=== PATIENT | male | born 1955 ===

== ENCOUNTER 2024-08-13 10:13 | Outpatient (CLI) | payer MEDICARE, OTHER, SELFPAY ==
--- OUTSIDE RECORDS SUMMARY | 2024-08-15 17:16 | XMS_ITS | Data Portability ---
Author Organization [facility], Main Office Address [address] [facility] [address] [place] [phone] Assessment No assessment recorded. Plan of Treatment Reminders Order Date Submit Date Provider Last Modified By Organization Details Last Modified Time Details Appointments None recorded. Lab None recorded. Referral None recorded. Procedures cryosurgery (PROC) 2019 020 [email or web address] Not available 0 22:43:05 cryosurgery (PROC) 2019 020 [email or web address] Not available 0 22:43:05 Surgeries None recorded. Imaging None recorded. Medication Orders None recorded. Patient TargetsNo targets recorded. Patient Instructions Encounter Date Encounter Id Patient Instructions Last Modified By Organization Details Last Modified Time 07/30/2019 [id number] RIGHT: ABOVE BROW, TEMPLX2, LEFT:X9OPHYIT dict Cryotherapy to AKs. SPF 30. Monthly self-exam. Consider 5-FU to the forehead and druze areas after healing from the cryo. Reassurance benign regarding skin tags. Discussed cosmetic removal. Follow up in 6 months. [id number] Not available 07/31/2019 11:14:25 Reason for Referral None Reported. Problems Name Problem SNOMED Code Status Onset Date Resolution Date Notes Provider Name and Address Organization Details Recorded Time Actinic keratosis Active 019 Rosendo Gomez MD [address] [facility] [address], [place], [phone], [facility] 9 10:34:02 History of malignant neoplasm of skin Active 019 Rosendo Gomez MD [address] [facility] [address], [place], [phone], [facility] 9 10:34:03 Screening for malignant neoplasm of skin Active 019 Rosendo Gomez MD [address], [place], [phone], [facility] 9 10:34:04 Neoplasm of uncertain behavior of skin 12066561 Active 019 Rosendo Gomez MD [address], [place], [address], [facility] 9 10:34:53 Multiple actinic keratoses 826127087 Active 020 Rosendo Gomez MD [address], [place], [address], [facility] 0 11:01:02 Multiple axillary skin tags 902272698 Active 020 Rosendo Gomez MD [address], [place], [phone], [facility] 0 11:01:03 Problem Notes None recorded. Medical Equipment None Reported. Medications Name Sig Start Date Stop Date Status Note LastModified by Organization Details LastModified Time fluorouraci l 5 % topical cream APPLY TO THE NOTED AREAS OF THE SCALP EVERY EVENING, FOR 4 WEEKS. active Not Available Not Available No t Available allopurinol 100 mg tablet 12/11 completed Not Available Not Available Not Available spironolact one 25 mg tablet active Not Available Not Available Not Available losartan 100 mg-hydrochl orothiazide 25 mg tablet 07/30 completed Not Available Not Available Not Available amlodipine 10 mg tablet active Not Available Not Available Not Available hydralazine 100 mg tablet active Not Available Not Available Not Available hydrochloro thiazide 25 mg tablet active Not Available Not Available No t Available losartan 100 mg tablet active Not Available Not Available Not Available Bystolic 10 mg tablet active Not Available Not Available No t Available Picato 0.015 % topical gel APPLY TO THE AFFECTED AREA(S) ON THE FACE BY TOPICAL ROUTE ONCE DAILY FOR 3 CONSECUTI VE DAYS 07/30 completed Not Available Not Available Not Available Vitals None Recorded Social History None recorded. Functional Status None recorded. Mental Status None recorded. Family History Nothing Reported. Medical History No medical history recorded. Past Encounters Encounter ID Performer Location Encounter Start Date Encounter Closed Date Diagnosis/Indication Diagnosis SNOMED-CT Code Diagnosis ICD10 Code Diagnosis Note [id number] Rosendo Gomez MD Main Office [address] [facility] [address] [place] [phone] 07/30/2019 10:45:55 07/30/2019 11:04:52 Multiple actinic keratoses 796813167 L57.0 Multiple a xillary skin tags 310758938 D23.5 Chronic ef fect of ultraviolet radiation on normal skin 308599313 L57.8 Health Concerns Section Related Observation LastModified by Organization Detai ls LastModified Time None Recorded Concern Status LastModified by Organization Details LastModified Time None Recorded Advance Directives Directive None Recorded Payers Encounter Date Sequence Insurance Name Policy Number Policy Small Covered Member ID Small Member ID Guarantor Name 07/30/2019 1 [facility] [id number] Felipe Mera [id number] Felipe Mera Notes Date Note Type Note Provider Name and Address Organization Details Recorded Time 07/30/2019 text/html Here to check areas on the face, scalp status post 5-FU. Treated the scalp for 4 weeks but did not complete the full 4 weeks for the face because it was just too irritating. Got the lower face but not the druze and forehead. Also checked growths on the underarms, increasing and starting to bother me but generally are okay. Rosendo Gomez MD [address] [facility] [address], [place], [phone], [facility] 08/21/2019 22:43:27
--- OUTSIDE RECORDS SUMMARY | 2024-08-15 17:16 | XMS_ITS | Data Portability ---
Author Organization [employer] [facility] [employer], Medical Address [address] [place] [address] Care Team Providers Care Redevelopment Manager Name Role Phone JAYCEE GRIFFIN Cloth Seconds Sorter TISH BARNETT Internal Medicine SEAN VEE Primary Care Provider Unavailabl e Assessment Encounter Date Assessment Date Assessment LastModified by Organization Details LastModified Time 12/09/2022 12/09/2022 Felipe is a 67 y/o M whom presents for med refill. He has no questions about ongoing medication use. 1. Hypertension refills sent for furosemide and will recheck lipid panel cbc cmp 2. Metabolic syndrome refills sent for metformin and recheck A1C, insulin and FBS [email or web address] Not available 12/09/2022 15:26:36 Plan of Treatment Reminders Order Date Submit Date Provider Last Modified By Organization Details Last Modified Time Details Appointments None recorded. Lab HbA1c (hemoglobin A1c), blood 2022 023 [employer] [facility], [address] [place], [address], 3 14:25:36 insulin, serum 2022 023 [employer] [facility], [address] [place], [address], 3 14:25:39 CMP, serum or plasma 2022 023 [employer] [facility], [address] [place], [address], 3 14:25:35 CBC w/ auto diff 2022 023 [employer] [facility], [address] [place], [address], 3 14:25:38 lipid panel, serum 2022 023 [employer] [facility], [address], Lower Level: [address], [place], [address], 14:25:35 T4, free, serum 2022 023 [facility], [address] [place], [address], 14:25:37 TSH, serum or plasma 2022 023 [employer] [facility], [address] [place], [address], 3 14:25:37 T3, free, serum or plasma 2022 023 [employer] [facility], [address] [place], [address], 3 14:25:38 vitamin D, 25-hydroxy, total, serum 2022 023 [facility], [address] [place], [address], 3 14:25:36 PSA, serum or plasma 2022 023 [facility] [facility], [address] [place], [address], 3 14:25:39 vitamin D, 25-hydroxy, total, serum 2022 023 [employer] [facility], [address] [place], [address], 3 23:00:26 lipid panel, serum 2022 023 [employer] [facility], [address] [place], [address], 3 23:00:24 coenzyme Q10, total, serum or plasma 2022 023 [employer], [address] [place], [address], 3 23:00:28 testosteron e, free + total, serum 2022 023 [place] [facility], [address] [place], [address], 3 23:00:24 estrogen, total, serum 2022 023 [employer] [facility], [address] [place], [address], 3 23:00:27 CMP, serum or plasma 2022 023 [employer] [facility], [address] [place], [address], 3 23:00:25 CBC w/ auto diff 2022 023 [facility], [address] [place], [address], 3 23:00:27 HbA1c (hemoglobin A1c), blood 2022 023 [facility], [address] [place], [address], 3 23:00:26 insulin, serum 2022 023 [facility], [address] [place] [address], [address], 3 23:00:27 uric acid, serum or plasma 2022 023 [facility], [address] [place], [address], 3 23:00:26 uric acid, serum or plasma 2022 024 [facility], [address] [place], [address], 4 03:11:52 HbA1c (hemoglobin A1c), blood 2022 024 [facility], [address] [place], [address], 4 03:11:54 unlisted lab - cardio iq(R) insulin resistance panel with score 2022 024 [facility], [address] [place], [address], 4 03:11:56 lipid panel, serum 2022 024 [email or web address], [address] [place], [address], 4 17:44:55 CMP, serum or plasma 2022 024 [email or web address] [facility], [address] [place], [address], 4 17:44:32 Referral None recorded. Procedures None recorded. Surgeries None recorded. Imaging CT, coronary calcium score - Note to Patient: They do accept walk ins, but to minimize wait time we recommend calling ahead to schedule.Th e test costs $99 and is payable at the time of the visits.No preparation is necessary. No IV is needed.The test will take a total of 5-10 minutes. [email or web address] [facility], [address], [place], [address], 11:29:10 Medication Orders anastrozole 1 mg tablet 2022 023 [email or web address] 3 ND [facility], [address], [place], [id number], 3 10:07:08 furosemide 40 mg tablet [address] [place] [address] [facility], [address], [place], [id number], 3 09:48:47 metformin 500 mg tablet 2022 023 [facility]778, [address], [place], [id number], 3 15:19:04 naltrexone 50 mg tablet 2022 023 [facility]91, [address], [place], [id number], 3 10:30:19 spironolact one 25 mg tablet 2022 023 [facility], [address], [place], [id number], 3 10:19:11 Patient TargetsNo targets recorded. Patient Instructions Encounter Date Encounter Id Patient Instructions Last Modified By Organization Details Last Modified Time 04/01/2022 [id number] 1. goal 8-10 lbs wt loss next 30 days 2. no alcohol 3. 30 min movement daily 4. diet high protein low carb -- 5. lots of water intake 6. cardiac calcium scan today if possible 7. see me on - as planned in person 8. reach out if any issues 9. balance recesser goal is wt [phone] - we have monthly appt thru the end of the year 10. we may need to check cpap machine to make sure working but i am sure it is due to wt gain elena Not available 04/01/2022 10:58:01 02/03/2023 [id number] 1. fasting labs in 3 months 2. see me after labs 3. reach out if any issues in the [facility] - work on diet and exercise elena Not available 02/03/2023 10:09:47 05/10/2023 [id number] 1. work on reducing red meat and pork and alcohol *rx for naltrexone to help alcohol cravings 2. wt loss goal - 10 + lbs in the next 3 months 3. increase wt training and cardio both 4. refill spironolactone sent in 5. cont resveratrol 6. fasting labs in 3 months -see me after labs 7. consider flu vaccine recheck carotid artery scan -- [email or web address] Not available 05/10/2023 10:30:06 Reason for Referral None Reported. Results Created Date Observation Date Name Description Value Unit Range Abnormal Flag Note LastModifiedBy Organization Detail LastModifiedTime 01/21/20 23 01/30/2023 ADVAN DOROTHY LIPID PNL W/INF LAMMA TION, CARDI O IQ(R) cholesterol, total 149 mg/dL <200 Not Available [facility] [address] [place], [address], 01/30/2023 14:25:34 01/21/20 23 01/30/2023 ADVAN DOROTHY LIPID PNL W/INF LAMMA TION, CARDI O IQ(R) HDL cholesterol 40 mg/dL >39 Not Available [facility] [address], [address], 01/30/2023 14:25:34 01/21/20 23 01/30/2023 ADVAN DOROTHY LIPID PNL W/INF LAMMA TION, CARDI O IQ(R) triglyceride s 194 mg/dL <150 high Not Available [facility] [address], [address], 01/30/2023 14:25:34 01/21/20 23 01/30/2023 ADVAN DOROTHY LIPID PNL W/INF LAMMA TION, CARDI O IQ(R) LDL-choleste rol 80 mg/dL _(zenon c) <100 Jeffery able range <100 mg/dL for prima ry preve ntion ; <70 mg/dL for patie nts with CHD or diabe tic patie nts with >= 2 CHD risk facto rs. LDL-C is now calcu lated using the [facility] calcu latio n, which is a valid ated novel metho d provi ding ken r accur acy than the Fried seth equat ion in the estim ation of LDL-C . Tammie n SS et al. JANICE. 2013; 310(1 9): 2060- 2067 (http ://ed ati on.Qu Venuefox. com/f aq/FA Q164) LDL-C is now calcu lated using the Tammie n-Hop iglesia calcu latio n, which is a valid ated novel metho d provi ding ken r accur acy than the Fried seth equat ion in the estim ation of LDL-C . Tammie n SS et al. JANICE. 2013; 310(1 9): 2060- 2067 (http ://ed ati on.[employer]. com/f aq/FA Q164) Not Available [address], [address], 01/30/2023 14:25:34 01/21/20 23 01/30/2023 ADVAN DOROTHY LIPID PNL W/INF LAMMA TION, CARDI O IQ(R) chol/HDLC ratio 3.7 calc <3.6 high Not Available [address], [address], 01/30/2023 14:25:34 01/21/20 23 01/30/2023 ADVAN DOROTHY LIPID PNL W/INF LAMMA TION, CARDI O IQ(R) non HDL cholesterol 109 mg/dL _(zenon c) <130 For patie nts with diabe barbara plus 1 major ASCVD risk facto r, treat ing to a non-H DL-C goal of <100 mg/dL (LDL- C of <70 mg/dL ) is consi dered a thera peuti c optio n. For patie nts with diabe barbara plus 1 major ASCVD risk facto r, treat ing to a non-H DL-C goal of <100 mg/dL (LDL- C of <70 mg/dL ) is consi dered a thera peuti c optio n. Not Available [facility] [address] [place], [address], 01/30/2023 14:25:34 01/21/2001/30/2023 ADVAN DOROTHY LIPID PNL W/INF LAMMA TION, CARDI O IQ(R) LDL particle number 1195 nmol/ L <1138 high Relat gabriel Risk: Optim al <1138 ; Moder ate 1138- 1409; High >1409 . Refer ence Range : <1138 nmol/ L. Not Available [facility] [address] [place], [address], 01/30/2023 14:25:34 01/21/2001/30/2023 ADVAN DOROTHY LIPID PNL W/INF LAMMA TION, CARDI O IQ(R) LDL small 246 nmol/ L <142 high Relat gabriel Risk: Optim al <142; Moder ate 142-2 19; High >219. Refer ence Range : <142 nmol/ L. Not Available [facility] [address] [place], [address], 01/30/2023 14:25:34 01/21/2001/30/2023 ADVAN DOROTHY LIPID PNL W/INF LAMMA TION, CARDI O IQ(R) LDL medium 155 nmol/ L <215 Relat gabriel Risk: Optim al <215; Moder ate 215-3 01; High >301. Refer ence Range : <215 nmol/ L. Not Available [facility] [address] [place], [address], 01/30/2023 14:25:34 01/21/2001/30/2023 ADVAN DOROTHY LIPID PNL W/INF LAMMA TION, CARDI O IQ(R) HDL large 4802 nmol/ L >6729 low Relat gabriel Risk: Optim al >6729 ; Moder ate 6729- 5353; High <5353 . Refer ence Range : >6729 nmol/ L. Not Available [facility] [address] [place], [address], 01/30/2023 14:25:34 01/21/20 23 01/30/2023 ADVAN DOROTHY LIPID PNL W/INF LAMMA TION, CARDI O IQ(R) LDL pattern B patte rn A abnormal Relat gabriel Risk: Optim al Patte rn A; High Patte rn B. Refer ence Range : Patte rn A. Not Available [facility] [address] [place], [address], 01/30/2023 14:25:34 01/21/20 23 01/30/2023 ADVAN DOROTHY LIPID PNL W/INF LAMMA TION, CARDI O IQ(R) LDL peak size 206.3 angst rom >222.9 low Relat gabriel Risk: Optim al >222. 9; Moder ate 222.9 -217. 4; High <217. 4. Refer ence Range : >222. 9 Angst rom. Adult cardi ovasc ular event risk categ ory cut point s (opti mal, moder ate, high) are based on an adult [place]. refer ence popul ation plus two large cohor t study popul ation s. Assoc iatio n betwe en lipop rotei n subfr actio ns and cardi ovasc ular event s is based on Teofilo sandoval et al. ATVB. 2009; 29:19 75. For addit ional infor kadi rojas e refer to http: //[facility] newnan catfrancois jiang.Que stDia gnost ics.c om/fa q/FAQ 134 (This link is being provi ded for infor aida nal/e ducat ional purpo ses only. )This test was devel opjayashree and its alcides tical perfo rmanc e sarina cteri stics have been deter mined by [facility] omeandrea kapadia at [facility]. It has not been clear ed or appro emmie by the U.S. Food and Drug Admin istra tion. This assay has been valid ated pursu ant to the CLIA regul ation s and is used for clini zenon purpo ses. Not Available [facility] [address] [place], [address], 01/30/2023 14:25:34 01/21/20 23 01/30/2023 ADVAN DOROTHY LIPID PNL W/INF LAMMA TION, CARDI O IQ(R) apolipoprote in B 80 mg/dL <90 Risk: Optim al <90 mg/dL ; Moder ate 90-11 9 mg/dL ; High >= 120 mg/dL ; Cardi ovasc ular event risk categ ory cut point s (opti mal, moder ate, high) are based on Natio nal Lipid Assoc iatio n recom menda tions - Carter sen TA et al. J of Clin Lipid . 2015; 9: 129-1 69 and Kiko ARTIS et al. Endoc r Pract . 2017; 23(Enriquez ppl 2):1- 87. Not Available [facility] [address] [place], [place] [address], [place], [address], 01/30/2023 14:25:34 01/21/20 23 01/30/2023 ADVAN DOROTHY LIPID PNL W/INF LAMMA TION, CARDI O IQ(R) lipoprotein (A) 11 nmol/ L <75 Risk: Optim al <75 nmol/ L; Moder ate 75-12 5 nmol/ L; High >125 nmol/ L. Cardi ovasc ular event risk categ ory cut point s (opti mal, moder ate, high) are based on Nelida Puga [facility] 2017; 69:69 2-711 . Not Available [facility] [address] [place], [address], 01/30/2023 14:25:34 01/21/20 23 01/30/2023 ADVAN DOROTHY LIPID PNL W/INF LAMMA TION, CARDI O IQ(R) hs CRP 3.0 mg/L <1.0 high The AHA/C DC Guide lines recom mend hs-CR P range s for ident ifyin g Relat gabriel Cardi ovasc ular Risk in patie nts ages >17 years : <1.0 mg/L Lower Relat gabriel Cardi ovasc ular Risk; 1.0-3 .0 mg/L Rapelje ge Relat gabriel Cardi ovasc ular Risk; 3.1-1 0.0 mg/L Highe r Relat gabriel Cardi ovasc ular Risk. For patie nts with highe r cardi ovasc ular risk, consi cuauhtemoc retes ting in 1-2 weeks to exclu de a benig n trans ient eleva tion secon baylee to infec tion or infla mmati on from the basel ine CRP value . Persi stent eleva tions of >10.0 mg/L upon retes ting may be assoc iated with infec tion and infla mmati on. The AHA/C DC recom menda tions are based on Pears on TA et al. Circu latio n. 2003; 107:4 99-51 1. For ages >17 Years : hs-CR P mg/L Risk Accor ding to AHA/C DC Guide lines <1.0 Lower relat gabriel cardi ovasc ular risk. 1.0-3 .0 Rapelje ge relat gabriel cardi ovasc ular risk. 3.1-1 0.0 Highe r relat gabriel cardi ovasc ular risk. Consi cuauhtemoc retes ting in 1 to 2 weeks to exclu de a benig n trans ient eleva tion in the basel ine CRP value secon baylee to infec tion or infla mmati on. >10.0 Persi stent eleva tion, upon retes ting, may be assoc iated with infec tion and infla mmati on. Not Available [facility] [address] [place], [address], 01/30/2023 14:25:34 01/21/20 23 01/30/2023 ADVAN DOROTHY LIPID PNL W/INF LAMMA TION, CARDI O IQ(R) LP pla2 activity 114 nmol/ min/m L <124 Relat gabriel Risk: Optim al <=123 nmol/ min/m L; High >123 nmol/ min/m L.Thi s test was devel oped and its alcides tical perfo rmanc e sarina cteri stics have been deter mined by [facility] [place] [facility]. It has not been clear ed or appro emmie by the U.S. Food and Drug Admin istra tion. This assay has been valid ated pursu ant to the CLIA regul ation s and is used for clini zenon purpo ses. See Note 1 Not Available [facility] [address] [place], [address], 01/30/2023 14:25:34 01/21/2001/30/2023 HEMOG LOBIN A1C hemoglobin A1C 5.4 %_of_ total _HGB <5.7 normal For the purpo se of screchiquita joel for the prese nce of diabe barbara: <5.7% Consi stent with the absen ce of diabe barbara 5.7-6 .4% Consi stent with incre ased risk for diabe barbara (pred iabet es) > or =6.5% Consi stent with diabe barbara This assay resul t is consi stent with a decre ased risk of diabe barbara. Curre ntly, no conse nsus exist s el raphael use of hemog lobin A1c for diagn osis of diabe barbara in child wild. Accor ding to Ameri can Diabe barbara Assoc iatio n (ADA) guide lines , hemog lobin A1c <7.0% repre sents optim al contr ol in non-p regna nt diabe tic patie nts. Diffe rent metri cs may apply to speci fic patie nt popul ation s. Stand ards of Medic al Care in Diabe barbara(A DA). Not Available [facility] [address], [place], [address], 01/30/2023 14:25:36 01/21/2001/30/2023 VITAM IN D,25- OH,TO RORY,I A vitamin D,25-oh,tota l,ia 50 NG/mL 30-100 normal Vitam in D Statu s 25-OH Vitam in D: Defic iency : <20 ng/mL Insuf ficie ncy: 20 - 29 ng/mL Optim al: > or = 30 ng/mL For 25-OH Vitam in D testi ng on patie nts on D2-enriquez pplem entat ion and patie nts for whom quant itati on of D2 and D3 fract ions is requi red, the [facility](TM ) 25-OH VIT D, (D2,D 3), LC/MS /MS is recom yesika d: order code 45098 (aiden ents >2yrs ). See Note 2 Note 1 This test was devel oped and its alcides tical perfo rmanc e sarina cteri stics have been deter mined by [facility]. It has not been clear ed or appro emmie by the FDA. This assay has been valid ated pursu ant to the CLIA regul ation s and is used for clini zenon purpo ses. Note 2 For addit ional infor kadi rojas e refer to http: //[facility] newnan santos jiang.Shay stDia gnost ics.c om/fa q/FAQ 199 (This link is being provi ded for infor aida clarke/ educron parrpaulina l purpo ses only. ) Not Available [facility] [address] [place], [address], 01/30/2023 14:25:36 01/21/2001/30/2023 TSH TSH 2.53 mIU/L 0.40-4 .50 normal Not Available [facility] [address] [place], [address], 01/30/2023 14:25:37 01/21/20 23 01/30/2023 T4, FREE T4, free 1.2 NG/dL 0.8-1. 8 normal Not Available [facility] [address] [place], [address], 01/30/2023 14:25:37 01/21/20 23 01/30/2023 T3, FREE T3, free 3.1 pg/mL 2.3-4. 2 normal Not Available [facility] [address] [place], [address], 01/30/2023 14:25:38 01/21/20 23 01/30/2023 CBC (INCL UDES DIFF/ PLT) white blood cell count 5.5 thous and/u L 3.8-10 .8 normal Not Available [address], [address], 01/30/2023 14:25:38 01/21/20 23 01/30/2023 CBC (INCL UDES DIFF/ PLT) red blood cell count 4.70 sean on/uL 4.20-5 .80 normal Not Available [address], [address], 01/30/2023 14:25:38 01/21/20 23 01/30/2023 CBC (INCL UDES DIFF/ PLT) hemoglobin 15.0 g/dL 13.2-1 7.1 normal Not Available [address], [address], 01/30/2023 14:25:38 01/21/20 23 01/30/2023 CBC (INCL UDES DIFF/ PLT) hematocrit 45.1 % 38.5-5 0.0 normal Not Available [address], [address], 01/30/2023 14:25:38 01/21/20 23 01/30/2023 CBC (INCL UDES DIFF/ PLT) MCV 96.0 fL 80.0-1 00.0 normal Not Available [address], [address], 01/30/2023 14:25:38 01/21/20 23 01/30/2023 CBC (INCL UDES DIFF/ PLT) MCH 31.9 pg 27.0-3 3.0 normal Not Available [address], [address], 01/30/2023 14:25:38 01/21/20 23 01/30/2023 CBC (INCL UDES DIFF/ PLT) MCHC 33.3 g/dL 32.0-3 6.0 normal Not Available [address], [address], 01/30/2023 14:25:38 01/21/20 23 01/30/2023 CBC (INCL UDES DIFF/ PLT) RDW 12.7 % 11.0-1 5.0 normal Not Available [address], [address], 01/30/2023 14:25:38 01/21/20 23 01/30/2023 CBC (INCL UDES DIFF/ PLT) platelet count 214 thous and/u L 140-40 0 normal Not Available [address], [address], 01/30/2023 14:25:38 01/21/20 23 01/30/2023 CBC (INCL UDES DIFF/ PLT) MPV 9.4 fL 7.5-12 .5 normal Not Available [address], [address], 01/30/2023 14:25:38 01/21/20 23 01/30/2023 CBC (INCL UDES DIFF/ PLT) absolute neutrophils 2668 cells /uL 1500-7 800 normal Not Available [address], [address], 01/30/2023 14:25:38 01/21/20 23 01/30/2023 CBC (INCL UDES DIFF/ PLT) absolute lymphocytes 1876 cells /uL 850-39 00 normal Not Available [address], [address], 01/30/2023 14:25:38 01/21/20 23 01/30/2023 CBC (INCL UDES DIFF/ PLT) absolute monocytes 545 cells /uL 200-95 0 normal Not Available [address], [address], 01/30/2023 14:25:38 01/21/20 23 01/30/2023 CBC (INCL UDES DIFF/ PLT) absolute eosinophils 325 cells /uL 15-500 normal Not Available [facility] [address], [address], 01/30/2023 14:25:38 01/21/20 23 01/30/2023 CBC (INCL UDES DIFF/ PLT) absolute basophils 88 cells /uL 0-200 normal Not Available [facility] [address], [address], 01/30/2023 14:25:38 01/21/20 23 01/30/2023 CBC (INCL UDES DIFF/ PLT) neutrophils 48.5 % normal Not Available [facility] [address], [address], 01/30/2023 14:25:38 01/21/20 23 01/30/2023 CBC (INCL UDES DIFF/ PLT) lymphocytes 34.1 % normal Not Available [facility] [address], [address], 01/30/2023 14:25:38 01/21/20 23 01/30/2023 CBC (INCL UDES DIFF/ PLT) monocytes 9.9 % normal Not Available [facility] [address], [address], 01/30/2023 14:25:38 01/21/20 23 01/30/2023 CBC (INCL UDES DIFF/ PLT) eosinophils 5.9 % normal Not Available [facility] [address], [address], 01/30/2023 14:25:38 01/21/20 23 01/30/2023 CBC (INCL UDES DIFF/ PLT) basophils 1.6 % normal Not Available [facility] [address], [address], 01/30/2023 14:25:38 01/21/2001/30/2023 INSUL IN insulin 30.2 uIU/m L high Refer ence Range < or = 18.4 Risk: Optim al < or = 18.4 Moder ate NA High >18.4 Adult cardi ovasc ular event risk categ ory cut point s (opti mal, moder ate, high) are based on Insul in Refer ence Inter conchis studi es perfo [facility]med at [facility] in 2021. Not Available [facility] [address] [place], [address], 01/30/2023 14:25:39 01/21/2001/30/2023 PSA, TOTAL PSA, total 1.79 NG/mL < or = 4.00 normal The total PSA value from this assay syste m is stand ardiz ed again st the WHO stand elsy. The test resul t will be appro ximat carlito 20% lower when rinku red to the equim olar- stand ardiz ed total PSA (Jurado man Coult er). Rinku rison of seria l PSA resul ts shoul d be inter prete d with this fact in mind. This test was perfo rmed using the Shutle Tripp[employer] chemi lumin escen t metho d. Value s obtai kourtney from diffe rent assay metho ds canno t be used inter flores eably . PSA level s, regar dless of value , shoul d not be inter prete d as absol morongo evide nce of the prese nce or absen ce of disea se. Not Available [facility] [address], [place], [address], 01/30/2023 14:25:39 04/25/2005/06/2023 TESTO STERO NE, FREE, BIOAV AILAB LE AND TOTAL , MS albumin 4.3 g/dL 3.6-5. 1 Not Available [facility] [address] [place], [address], 05/06/2023 23:00:24 04/25/2005/06/2023 TESTO STERO NE, FREE, BIOAV AILAB LE AND TOTAL , MS sex hormone binding globulin 21.6 nmol/ L 22-77 low Not Available [address], [address], 05/06/2023 23:00:24 04/25/20 23 05/06/2023 TESTO STERO NE, FREE, BIOAV AILAB LE AND TOTAL , MS testosterone , free 35.0 pg/mL 46.0-2 24.0 low Not Available [address] [address] [place], [address], 05/06/2023 23:00:24 04/25/20 23 05/06/2023 TESTO STERO NE, FREE, BIOAV AILAB LE AND TOTAL , MS testosterone ,bioavailabl e 69.0 NG/dL 110.0- 575.0 low Not Available [address], [address], 05/06/2023 23:00:24 04/25/20 23 05/06/2023 TESTO STERO NE, FREE, BIOAV AILAB LE AND TOTAL , MS testosterone , total, MS 204 NG/dL 250-11 00 low Men with clini renata signi fican t hypog onada l sympt oms and testo stero ne value s repea tedly in the range of the 200-3 00 ng/dL or less, may benef it from testo stero ne treat ment after adequ ate risk and benef its couns eling . For addit ional infor kadi rojas e refer to https ://ed ucati on.qu estdi [facility]. com/f aq/FA Q109 (This link is being provi ded for infor aida nal/e ducat ional purpo ses only. ) (Note ) This test was devel oped and its alcides tical perfo rmanc e sarina cteri stics have been deter mined by [employer]. It has not been clear ed or appro emmie by the FDA. This assay has been valid ated pursu ant to the CLIA regul ation s and is used for clini zenon purpo ses. MDF med fusio n [address] [facility] [address] [place] [address] [phone] Ata mejia MD Not Available [address] [address] [place], [address], 05/06/2023 23:00:24 04/25/20 23 05/06/2023 ADVAN DOROTHY LIPID PNL W/INF LAMMA TION, CARDI O IQ(R) cholesterol, total 157 mg/dL <200 Not Available [address] [address] [place], [address], 05/06/2023 23:00:24 04/25/20 23 05/06/2023 ADVAN DOORTHY LIPID PNL W/INF LAMMA TION, CARDI O IQ(R) HDL cholesterol 40 mg/dL >39 Not Available [facility] [facility] [address] [address] [place], [address], 05/06/2023 23:00:24 04/25/20 23 05/06/2023 ADVAN DOROTHY LIPID PNL W/INF LAMMA TION, CARDI O IQ(R) triglyceride s 141 mg/dL <150 Not Available [address] [address] [place], [address], 05/06/2023 23:00:24 04/25/20 23 05/06/2023 ADVAN DOROTHY LIPID PNL W/INF LAMMA TION, CARDI O IQ(R) LDL-choleste rol 93 mg/dL _(zenon c) <100 Jeffery able range <100 mg/dL for prima ry preve ntion ; <70 mg/dL for patie nts with CHD or diabe tic patie nts with >= 2 CHD risk facto rs. LDL-C is now calcu lated using the Tammie n-Hop kins calcu latio n, which is a valid ated novel metho d provi ding ken r accur acy than the Fried seth equat ion in the estim ation of LDL-C . Tammie LEVY et al. JANICE. 2013; 310(1 9): 2060- 2067 (http ://ed ati on.[employer]. com/f aq/FA Q164) LDL-C is now calcu lated using the Tammie n-Hop kins calcu latfrancois n, which is a valid ated novel metho d provi ding ekn r accur acy than the Fried seth equat ion in the estim ation of LDL-C . Tammie jiang SS et al. JANICE. 2013; 310(1 9): 2060- 2067 (http ://ed Purpluati on.[employer]. com/f aq/FA Q164) Not Available [facility] [address] [address] [place], [address], 05/06/2023 23:00:24 04/25/20 23 05/06/2023 ADVAN DOROTHY LIPID PNL W/INF LAMMA TION, CARDI O IQ(R) chol/HDLC ratio 3.9 calc <5.0 Not Available [facility] [address] [address] [place], [address], 05/06/2023 23:00:24 04/25/20 23 05/06/2023 ADVAN DOROTHY LIPID PNL W/INF LAMMA TION, CARDI O IQ(R) non HDL cholesterol 117 mg/dL _(zenon c) <130 For patie nts with diabe barbara plus 1 major ASCVD risk facto r, treat ing to a non-H DL-C goal of <100 mg/dL (LDL- C of <70 mg/dL ) is consi dered a thera peuti c optio n. For patie nts with diabe barbara plus 1 major ASCVD risk facto r, treat ing to a non-H DL-C goal of <100 mg/dL (LDL- C of <70 mg/dL ) is consi dered a thera peuti c optio n. Not Available [facility] [address] [address] [place], [address], 05/06/2023 23:00:24 04/25/20 23 05/06/2023 ADVAN DOROTHY LIPID PNL W/INF LAMMA TION, CARDI O IQ(R) LDL particle number 1131 nmol/ L <1138 Relat gabriel Risk: Optim al <1138 ; Moder ate 1138- 1409; High >1409 . Male and Femal e Refer ence Range : 1016 to 2185 nmol/ L. Not Available [facility] [address] [place] [address], [address], 05/06/2023 23:00:24 04/25/2005/06/2023 ADVAN DOROTHY LIPID PNL W/INF LAMMA TION, CARDI O IQ(R) LDL small 253 nmol/ L <142 high Relat gabriel Risk: Optim al <142; Moder ate 142-2 19; High >219. Male Refer ence Range :?123 to 441 nmol/ L; Femal e Refer ence Range : 115 to 386 nmol/ L. Not Available [facility] [id number] [place], [address], 05/06/2023 23:00:24 04/25/2005/06/2023 ADVAN DOROTHY LIPID PNL W/INF LAMMA TION, CARDI O IQ(R) LDL medium 171 nmol/ L <215 Relat gabriel Risk: Optim al <215; Moder ate 215-3 01; High >301. Male Refer ence Range :?167 to 485 nmol/ L; Femal e Refer ence Range : 121 to 397 nmol/ L. Not Available [facility] [address] [facility] [place], [address], 05/06/2023 23:00:24 04/25/2005/06/2023 ADVAN DOROTHY LIPID PNL W/INF LAMMA TION, CARDI O IQ(R) HDL large 4422 nmol/ L >6729 low Relat gabriel Risk: Optim al >6729 ; Moder ate 6729- 5353; High <5353 . Male Refer ence Range :?433 4 to [address] ?nmol /L; Femal e Refer ence Range : 5038 to [address] nmol/ L. Not Available [facility] [address] [address], [place], [address], 05/06/2023 23:00:24 04/25/20 23 05/06/2023 ADVAN DOROTHY LIPID PNL W/INF LAMMA TION, CARDI O IQ(R) LDL pattern B patte rn A abnormal Relat gabriel Risk: Optim al Patte rn A; High Patte rn B. Refer ence Range : Patte rn A. Not Available [facility] [address] [address], [place], [address], 05/06/2023 23:00:24 04/25/20 23 05/06/2023 ADVAN DOROTHY LIPID PNL W/INF LAMMA TION, CARDI O IQ(R) LDL peak size 209.2 angst rom >222.9 low This test was devel franked and its alcides tical perfo rmanc e sarina cteri stics have been deter mined by [facility] [place] [facility]. It has not been clear ed or appro emmie by the U.S. Food and Drug Admin istra tion. This assay has been valid ated pursu ant to the CLIA regul ation s and is used for clini zenon purpo ses. Relat gabriel Risk: Optim al >222. 9; Moder ate 222.9 -217. 4; High <217. 4. Male and Femal e Refer ence Range :?216 to 234.3 ?Angs trom. Adult cardi ovasc ular event risk categ ory cut point s (opti mal, moder ate, high) are based on an adult U.S. refer ence popul ation plus two large cohor t study popul ation s. Assoc iatio n betwe en lipop rotei n subfr actio ns and cardi ovasc ular event s is based on Teofilo sandoval et al. ATVB. 2009; 29:19 75. For addit ional infor kadi rojas e refer to http: //daysi jiang.Que stDia gnost ics.c om/fa q/FAQ 134 (This link is being provi ded for infor matio nal/e ducat ional purpo ses only. ) Not Available [facility] [address] [place], [address], 05/06/2023 23:00:24 04/25/20 23 05/06/2023 ADVAN DOROTHY LIPID PNL W/INF LAMMA TION, CARDI O IQ(R) apolipoprote in B 83 mg/dL <90 Risk: Optim al <90 mg/dL ; Moder ate 90-11 9 mg/dL ; High >= 120 mg/dL ; Cardi ovasc ular event risk categ ory cut point s (opti mal, moder ate, high) are based on Natio nal Lipid Assoc iatio n recom menda tions - Carter sen TA et al. J of Clin Lipid . 2015; 9: 129-1 69 and Kiko ARTIS et al. Endoc r Pract . 2017; 23(Enriquez ppl 2):1- 87. Not Available [facility] [address] [place], [address], 05/06/2023 23:00:24 04/25/20 23 05/06/2023 ADVAN DOROTHY LIPID PNL W/INF LAMMA TION, CARDI O IQ(R) lipoprotein (A) 25 nmol/ L <75 Risk: Optim al <75 nmol/ L; Moder ate 75-12 5 nmol/ L; High >125 nmol/ L. Cardi ovasc ular event risk categ ory cut point s (opti mal, moder ate, high) are based on Nelida Puga [facility] 2017; 69:69 2-711 . Not Available [facility] [address] [place], [address], 05/06/2023 23:00:24 04/25/20 23 05/06/2023 ADVAN DOROTHY LIPID PNL W/INF LAMMA TION, CARDI O IQ(R) hs CRP 5.4 mg/L <1.0 high The AHA/C DC Guide lines recom mend hs-CR P range s for ident ifyin g Relat gabriel Cardi ovasc ular Risk in patie nts ages >17 years : <1.0 mg/L Lower Relat gabriel Cardi ovasc ular Risk; 1.0-3 .0 mg/L Rapelje ge Relat gabriel Cardi ovasc ular Risk; 3.1-1 0.0 mg/L Highe r Relat gabriel Cardi ovasc ular Risk. For patie nts with highe r cardi ovasc ular risk, consi cuauhtemoc retes ting in 1-2 weeks to exclu de a benig n trans ient eleva tion secon baylee to infec tion or infla mmati on from the basel ine CRP value . Persi stent eleva tions of >10.0 mg/L upon retes ting may be assoc iated with infec tion and infla mmati on. The AHA/C DC recom menda tions are based on Keira on TA et al. Circu latio n. 2003; 107:4 99-51 1. For ages >17 Years : hs-CR P mg/L Risk Accor ding to AHA/C DC Guide lines <1.0 Lower relat gabriel cardi ovasc ular risk. 1.0-3 .0 Rapelje ge relat gabriel cardi ovasc ular risk. 3.1-1 0.0 Highe r relat gabriel cardi ovasc ular risk. Consi cuauhtemoc retes ting in 1 to 2 weeks to exclu de a benig n trans ient eleva tion in the basel ine CRP value secon baylee to infec tion or infla mmati on. >10.0 Persi stent eleva tion, upon retes ting, may be assoc iated with infec tion and infla mmati on. Not Available [facility] [address] [address], [place], [address], 05/06/2023 23:00:24 04/25/20 23 05/06/2023 ADVAN DOROTHY LIPID PNL W/INF LAMMA TION, CARDI O IQ(R) LP pla2 activity 115 nmol/ min/m L <124 This test was devel oped and its alcides tical perfo rmanc e sarina cteri stics have been deter mined by [facility] huber devries [facility] [place] at [facility]. It has not been clear ed or appro emmie by the U.S. Food and Drug Admin istra tion. This assay has been valid ated pursu ant to the CLIA regul ation s and is used for clini zenon purpo ses. Relat gabriel Risk: Optim al <=123 nmol/ min/m L; High >123 nmol/ min/m L. See Note 1 Not Available [facility] [address] [address] [place], [address], 05/06/2023 23:00:24 04/25/20 23 05/06/2023 COMPR EHENS GABRIEL METAB OLIC PANEL glucose 94 mg/dL 65-99 normal Fasti ng refer ence inter conchis Not Available [facility] [address] [address] [place], [address], 05/06/2023 23:00:25 04/25/20 23 05/06/2023 COMPR EHENS GABRIEL METAB OLIC PANEL urea nitrogen (BUN) 21 mg/dL 7-25 normal Not Available [facility] [address], [address], 05/06/2023 23:00:25 04/25/20 23 05/06/2023 COMPR EHENS GABRIEL METAB OLIC PANEL creatinine 0.79 mg/dL 0.70-1 .35 normal Not Available [facility] [address], [address], 05/06/2023 23:00:25 04/25/20 23 05/06/2023 COMPR EHENS GABRIEL METAB OLIC PANEL eGFR 97 mL/mi n/1.7 3m2 > or = 60 normal Not Available [facility] [address], [address], 05/06/2023 23:00:25 04/25/20 23 05/06/2023 COMPR EHENS GABRIEL METAB OLIC PANEL BUN/creatini ne ratio SEE NOTE: (calc ) 6-22 Not Repor jenn: BUN and Creat inine are withi n refer ence range . Not Available [address], [address], 05/06/2023 23:00:25 04/25/20 23 05/06/2023 COMPR EHENS GABRIEL METAB OLIC PANEL sodium 138 mmol/ L 135-14 6 normal Not Available [facility] [address], [address], 05/06/2023 23:00:25 04/25/20 23 05/06/2023 COMPR EHENS GABRIEL METAB OLIC PANEL potassium 3.9 mmol/ L 3.5-5. 3 normal Not Available [facility] [address] [address] [place], [address], 05/06/2023 23:00:25 04/25/20 23 05/06/2023 COMPR EHENS GABRIEL METAB OLIC PANEL chloride 106 mmol/ L 98-110 normal Not Available [facility] [address], [address], 05/06/2023 23:00:25 04/25/20 23 05/06/2023 COMPR EHENS GABRIEL METAB OLIC PANEL carbon dioxide 23 mmol/ L 20-32 normal Not Available [address] [address] [place], [address], 05/06/2023 23:00:25 04/25/20 23 05/06/2023 COMPR EHENS GABRIEL METAB OLIC PANEL calcium 9.0 mg/dL 8.6-10 .3 normal Not Available [facility] [address], [address], 05/06/2023 23:00:25 04/25/20 23 05/06/2023 COMPR EHENS GABRIEL METAB OLIC PANEL protein, total 7.0 g/dL 6.1-8. 1 normal Not Available [facility] [address], [address], 05/06/2023 23:00:25 04/25/20 23 05/06/2023 COMPR EHENS GABRIEL METAB OLIC PANEL albumin 4.3 g/dL 3.6-5. 1 normal Not Available [address], [address], 05/06/2023 23:00:25 04/25/20 23 05/06/2023 COMPR EHENS GABRIEL METAB OLIC PANEL globulin 2.7 g/dL_ (calc ) 1.9-3. 7 normal Not Available [address], [address], 05/06/2023 23:00:25 04/25/20 23 05/06/2023 COMPR EHENS GABRIEL METAB OLIC PANEL albumin/glob ulin ratio 1.6 (calc ) 1.0-2. 5 normal Not Available [address], [address], 05/06/2023 23:00:25 04/25/20 23 05/06/2023 COMPR EHENS GABRIEL METAB OLIC PANEL bilirubin, total 0.7 mg/dL 0.2-1. 2 normal Not Available [address], [address], 05/06/2023 23:00:25 04/25/20 23 05/06/2023 COMPR EHENS GABRIEL METAB OLIC PANEL alkaline phosphatase 74 U/L 35-144 normal Not Available [address], [address], 05/06/2023 23:00:25 04/25/20 23 05/06/2023 COMPR EHENS GABRIEL METAB OLIC PANEL AST 19 U/L 10-35 normal Not Available [address], [address], 05/06/2023 23:00:25 04/25/20 23 05/06/2023 COMPR EHENS GABRIEL METAB OLIC PANEL ALT 26 U/L 9-46 normal Not Available [facility] [address] [place], [address], 05/06/2023 23:00:25 04/25/20 23 05/06/2023 HEMOG LOBIN A1C hemoglobin A1C 5.3 %_of_ total _HGB <5.7 normal For the purpo se of scree joel for the prese nce of diabe barbara: <5.7% Consi stent with the absen ce of diabe barbara 5.7-6 .4% Consi stent with incre ased risk for diabe barbara (pred iabet es) > or =6.5% Consi stent with diabe barbara This assay resul t is consi stent with a decre ased risk of diabe barbara. Curre ntly, no conse nsus exist s regandrez raphael use of hemog lobin A1c for diagn osis of diabe barbara in child wild. Accor ding to Ameri can Diabe barbara Assoc iatio n (ADA) guide lines , hemog lobin A1c <7.0% repre sents optim al contr ol in non-p regna nt diabe tic patie nts. Diffe rent metri cs may apply to speci fic patie nt popul ation s. Stand ards of Medic al Care in Diabe barbara(A DA). Not Available [facility] [address] [address], [place], [address], 05/06/2023 23:00:26 04/25/20 23 05/06/2023 VITAM IN D,25- OH,TO RORY,I A vitamin D,25-oh,tota l,ia 59 NG/mL 30-100 normal Vitam in D Statu s 25-OH Vitam in D: Defic iency : <20 ng/mL Insuf ficie ncy: 20 - 29 ng/mL Optim al: > or = 30 ng/mL For 25-OH Vitam in D testi ng on patie nts on D2-enriquez pplem entat ion and patie nts for whom quant itati on of D2 and D3 fract ions is requi red, the [facility] eD(TM ) 25-OH VIT D, (D2,D 3), LC/MS /MS is recom yesika d: order code 23133 (aiden ents >2yrs ). See Note 2 Note 1 This test was devel oped and its alcides tical perfo rmanc e sarina cteri stics have been deter mined by [facility]. It has not been clear ed or appro emmie by the FDA. This assay has been valid ated pursu ant to the CLIA regul ation s and is used for clini zenon purpo ses. Note 2 For addit ional infor kadi rojas e refer to http: //[facility] catfrancois jiang.Que stDia gnost ics.c om/fa q/FAQ 199 (This link is being provi ded for infor aida clarke/ educa paulina l purpo ses only. ) Not Available [facility] [address], [address], 05/06/2023 23:00:26 04/25/20 23 05/06/2023 URIC ACID uric acid 8.0 mg/dL 4.0-8. 0 normal Thera amy conde t for gout patie nts: <6.0 mg/dL Not Available [facility] [address], [address], 05/06/2023 23:00:26 04/25/20 23 05/06/2023 ESTRO GENS, TOTAL , IA estrogens, total, ia 135 pg/mL < or = 404 Not Available [facility] [address], [address], 05/06/2023 23:00:27 04/25/20 23 05/06/2023 CBC (INCL UDES DIFF/ PLT) white blood cell count 6.3 thous and/u L 3.8-10 .8 normal Not Available [facility] [address], [address], 05/06/2023 23:00:27 04/25/20 23 05/06/2023 CBC (INCL UDES DIFF/ PLT) red blood cell count 4.78 sean on/uL 4.20-5 .80 normal Not Available [address], [address], 05/06/2023 23:00:27 04/25/20 23 05/06/2023 CBC (INCL UDES DIFF/ PLT) hemoglobin 15.8 g/dL 13.2-1 7.1 normal Not Available [address], [address], 05/06/2023 23:00:27 04/25/20 23 05/06/2023 CBC (INCL UDES DIFF/ PLT) hematocrit 46.0 % 38.5-5 0.0 normal Not Available [address], [address], 05/06/2023 23:00:27 04/25/20 23 05/06/2023 CBC (INCL UDES DIFF/ PLT) MCV 96.2 fL 80.0-1 00.0 normal Not Available [address], [address], 05/06/2023 23:00:27 04/25/20 23 05/06/2023 CBC (INCL UDES DIFF/ PLT) MCH 33.1 pg 27.0-3 3.0 high Not Available [address], [address], 05/06/2023 23:00:27 04/25/20 23 05/06/2023 CBC (INCL UDES DIFF/ PLT) MCHC 34.3 g/dL 32.0-3 6.0 normal Not Available [address], [address], 05/06/2023 23:00:27 04/25/20 23 05/06/2023 CBC (INCL UDES DIFF/ PLT) RDW 12.6 % 11.0-1 5.0 normal Not Available [address], [address], 05/06/2023 23:00:27 04/25/20 23 05/06/2023 CBC (INCL UDES DIFF/ PLT) platelet count 266 thous and/u L 140-40 0 normal Not Available [address], [address], 05/06/2023 23:00:27 04/25/20 23 05/06/2023 CBC (INCL UDES DIFF/ PLT) MPV 9.4 fL 7.5-12 .5 normal Not Available [address], [address], 05/06/2023 23:00:27 04/25/20 23 05/06/2023 CBC (INCL UDES DIFF/ PLT) absolute neutrophils 3534 cells /uL 1500-7 800 normal Not Available [address], [address], 05/06/2023 23:00:27 04/25/20 23 05/06/2023 CBC (INCL UDES DIFF/ PLT) absolute lymphocytes 1859 cells /uL 850-39 00 normal Not Available [address], [address], 05/06/2023 23:00:27 04/25/20 23 05/06/2023 CBC (INCL UDES DIFF/ PLT) absolute monocytes 529 cells /uL 200-95 0 normal Not Available [address], [address], 05/06/2023 23:00:27 04/25/20 23 05/06/2023 CBC (INCL UDES DIFF/ PLT) absolute eosinophils 290 cells /uL 15-500 normal Not Available [address], [address], 05/06/2023 23:00:27 04/25/20 23 05/06/2023 CBC (INCL UDES DIFF/ PLT) absolute basophils 88 cells /uL 0-200 normal Not Available [address], [address], 05/06/2023 23:00:27 04/25/20 23 05/06/2023 CBC (INCL UDES DIFF/ PLT) neutrophils 56.1 % normal Not Available [address], [address], 05/06/2023 23:00:27 04/25/20 23 05/06/2023 CBC (INCL UDES DIFF/ PLT) lymphocytes 29.5 % normal Not Available [address], [address], 05/06/2023 23:00:27 04/25/20 23 05/06/2023 CBC (INCL UDES DIFF/ PLT) monocytes 8.4 % normal Not Available [address], [address], 05/06/2023 23:00:27 04/25/20 23 05/06/2023 CBC (INCL UDES DIFF/ PLT) eosinophils 4.6 % normal Not Available [address], [address], 05/06/2023 23:00:27 04/25/20 23 05/06/2023 CBC (INCL UDES DIFF/ PLT) basophils 1.4 % normal Not Available [address], [address], 05/06/2023 23:00:27 04/25/20 23 05/06/2023 INSUL IN insulin 21.8 uIU/m L high Refer ence Range < or = 18.4 Risk: Optim al < or = 18.4 Moder ate NA High >18.4 Adult cardi ovasc ular event risk categ ory cut point s (opti mal, moder ate, high) are based on Insul in Refer ence Inter conchis studi es perfo rmed at [facility] in 2021. Not Available [facility] [address], [place], [address], 05/06/2023 23:00:27 04/25/20 23 05/06/2023 COENZ YME Q10 coenzyme Q10 0.93 ug/mL >0.35 This test was devel andry and its alcides tical perfo rmanc e sarina cteri stics have been deter mined by [facility]er Bass r [facility] [place] at [facility]. It has not been clear ed or appro emmie by the U.S. Food and Drug Admin istra tion. This assay has been valid ated pursu ant to the CLIA regul ation s and is used for clini zenon purpo ses. Coenz yme Q10 is a arana compo nent of the elect ton trans port chain , which creat es energ y. It is also invol emmie in antio xidan t pathw ays, inclu ding the regen erati on of the prote ctive funct ions of Vitam in E. CoQ10 may inter act with the antic oagul ant (bloo d thinn er) warfa rin and the diabe barbara drug insul in, and it may not be rinku tible with some types of cance r treat ment. For more infor aida jiang, visit https ://ww w.[facility]. h.gov /heal th/co enzym e-q10 /. Not Available [facility] [address], [place], [address], 05/06/2023 23:00:28 Result Notes None recorded. Problems Name Problem SNOMED Code Status Onset Date Resolution Date Notes Provider Name and Address Organization Details Recorded Time Essential hypertension 80339547 Active 2020 Ezrina Mertowes null, [place] [employer] [facility] 10:21:15 Metabolic syndrome X 442325087 Active 2020 Bello Vee null, [place] [employer] [facility] 08:46:17 Vitamin D deficiency 58319090 Active 2022 Bello Mariusz mohr [facility] 3 10:07:41 Problem Notes None recorded. Procedures Surgical History Date Name Laterality Status Provider Name and Address Organization Details Recorded Time 02/05/20 22 Blood Draw completed Chandni Colunga [facility] 02/28/2022 11:21:52 09/25/19 22 Blood Draw completed Emani Yin [facility] 10/07/2021 11:03:10 03/10/20 20 Blood Draw completed Emani Yin [facility] 03/11/2020 15:11:32 01/04/20 20 CIMT Testing completed Yair Fernandes [facility] 01/22/2020 16:32:40 12/19/19 20 Blood Draw completed Guerlineapolinar Berry [facility] 12/20/2019 15:37:58 08/16/19 20 Blood Draw completed Gina Rea [facility] 10/18/2019 11:44:09 Appendectomy completed celina Learnerator 09/12/2019 09:22:15 ligation of varicose vein completed celina Biz360r [facility] 09/12/2019 09:25:14 Colonoscopy completed celina Biz360r [facility] 09/12/2019 09:27:30 MRI completed celina Learnerator 09/12/2019 09:27:51 Imaging Results None recorded. Procedure Notes None recorded. Medical Equipment None Reported. Allergies Allergen ID Allergen Name Allergen Category Reaction Reaction Severity Criticality Documentation Date Start Date Code Code System Note Provider Name and Address Organization Details Recorded Time 8958 niacin medicatio n chest pain Not available Not available 10/21/2019 7393 RxNorm nicac in drugs Emani mohr [facility] 0 11:16:47 Medications Name Sig Start Date Stop Date Status Note LastModified by Organization Details LastModified Time Hydromet 5 mg-1.5 mg/5 mL oral syrup TAKE 5 ML BY MOUTH EVERY 6 HOURS FOR 3 DAYS NEEDED FOR COUGH 04/01 completed Not Available Not Available Not Available furosemide 40 mg tablet TAKE 1 TABLET BY MOUTH EVERY DAY active Not Available Not Available No t Available metformin 500 mg tablet TAKE 1 TABLET BY MOUTH EVERY DAY active Not Available Not Available No t Available anastrozole 1 mg tablet TAKE 1 TABLET BY MOUTH 3 TIMES A WEEK DIRECTED 05/10 completed Not Available Not Available Not Available doxycycline hyclate 100 mg capsule TAKE 1 CAPSULE BY MOUTH TWICE DAILY FOR 10 DAYS 04/01 completed Not Available Not Available Not Available naltrexone 50 mg tablet TAKE 1 TABLET BY MOUTH EVERY DAY active Not Available Not Available No t Available prednisone 20 mg tablet TAKE 2 TABLETS BY MOUTH EVERY DAY FOR 3 DAYS 04/01 completed Not Available Not Available Not Available fluorouraci l 5 % topical cream 09/20 completed Not Available Not Available Not Available metoprolol succinate ER 100 mg tablet,exte nded release 24 hr TAKE 1 TABLET BY MOUTH EVERY DAY active Not Available Not Available No t Available spironolact one 25 mg tablet TAKE 1 TABLET BY MOUTH DAILY active Not Available Not Available No t Available losartan 100 mg-hydrochl orothiazide 25 mg tablet 08/12 completed Not Available Not Available Not Available amlodipine 10 mg tablet TAKE 1 TABLET BY MOUTH EVERY DAY active Not Available Not Available No t Available hydrochloro thiazide 25 mg tablet one tablet daily 09/20 completed Not Available Not Available Not Available furosemide 20 mg tablet TK 1 T PO QD IN THE MORNING 12/17 completed Not Available Not Available Not Available losartan 100 mg tablet TAKE 1 TABLET BY MOUTH EVERY DAY active Not Available Not Available No t Available fluticasone propionate 50 mcg/actuati on nasal spray,suspe nsion SHAKE LIQUID AND USE 1 SPRAY IN EACH NOSTRIL TWICE DAILY NEEDED 04/01 completed Not Available Not Available Not Available amoxicillin 875 mg-potassiu m clavulanate 125 mg tablet TAKE 1 TABLET BY MOUTH TWICE DAILY WITH FOOD FOR 10 DAYS 04/01 completed Not Available Not Available Not Available azithromyci n 500 mg tablet 02/03 completed Not Available Not Available Not Available Boostrix Tdap 2.5 Lf unit-8 mcg-5 Lf/0.5 mL intramuscul ar suspension ADM 0.5ML IM UTD 02/05 completed Not Available Not Available Not Available Bystolic 10 mg tablet TAKE 2 TABLETS BY MOUTH EVERY DAY 11/27 completed Not Available Not Available Not Available ID NOW COVID-19 Test Kit TEST DIRECTED 11/24 completed Not Available Not Available Not Available Paxlovid 300 mg (150 mg x 2)-100 mg tablets in a dose pack TK 2 NIRMATREL VIR TS AND 1 RITONAVIR T TOGETHER PO BID FOR 5 DAYS BID FOR 5 DAYS 02/03 completed Not Available Not Available Not Available Vitals Date Recorded Body height Body mass index (BMI) Body weight Body temperature Heart rate Oxygen saturation Oxygen saturation in Arterial blood by Pulse oximetry Systolic blood pressure Diastolic blood pressure Provider Name and Address Organization Details Last Updated DateTime 2 172.72 cm 46.4 kg/m2 031751. 77 g 97.9 [degF] 53 /min 95 % 95 % 137 mm[Hg] 80 mm[Hg] Chandni Colunga [facility] 2 10:08:36 Date Recorded Body height Body temperature Heart rate Oxygen saturation Oxygen saturation in Arterial blood by Pulse oximetry Systolic blood pressure Diastolic blood pressure Provider Name and Address Organization Details Last Updated DateTime 3 172.72 cm 98.2 [degF] 67 /min 98 % 98 % 155 mm[Hg] 83 mm[Hg] KatjatinderMa yes [address] [facility], [place], [address], [facility] 3 15:04:21 Date Recorded Body height Body mass index (BMI) Body weight Heart rate Systolic blood pressure Diastolic blood pressure Provider Name and Address Organization Details Last Updated DateTime 3 172.72 cm 45.8 kg/m2 044933. 05 g 51 /min 131 mm[Hg] 71 mm[Hg] Gracie Champion [facility] 3 09:46:39 Date Recorded Body height Body mass index (BMI) Body weight Body temperature Heart rate Oxygen saturation Oxygen saturation in Arterial blood by Pulse oximetry Systolic blood pressure Diastolic blood pressure Provider Name and Address Organization Details Last Updated DateTime 3 172.72 cm 44 kg/m2 391349. 34 g 98 [degF] 52 /min 95 % 95 % 146 mm[Hg] 83 mm[Hg] Gracie Champion [facility] 3 09:51:39 Social History Question Answer Notes LastModified by Organization Details LastModified Time Tobacco Smoking Status Never Smoker celina [email or web address] [facility] 09/12/2019 09:32:06 What Is Your Level Of Alcohol Consumption? Heavy Information not available 09/12/2019 Animal Exposure? Yes Outdoors Informat ion not available 09/12/2019 How Much Tobacco Do You Chew? None Information not available 09/20/2019 Do You Or Have You Ever Used E-cigarettes Or Vape? Never Used Electronic Cigarettes Information not available 09/20/2019 Education 4 Year College Informatio n not available 09/12/2019 What Is Your Occupation? [employer] Information not available 09/12/2019 Have There Been Any Changes To Your Family Or Social Situation? No Information not available 09/12/2019 Hobbies/Activiti es Cycling, Shooting, Gardening Information not available 09/12/2019 International Travel [place], [place] Information not available 09/12/2019 Where Do You Live? House Information not available 09/12/2019 With Whom Do You Live Information not available 09/12/2019 Individuals Around You Are Supportive About Addressing The Issue And Getting Healthy. Information not available 09/12/2019 Week Days I Spend Mostly Working Within 60 Min From Home Traveling For Work. Information not available 09/12/2019 Weekends I Spend Mostly Working Within 60 Min From Home Relaxing Information not available 09/12/2019 Time Lost From Work This Year Due To Illness 0-2 Days Information not available 09/12/2019 Relaxation Methods Not Much Information not available 09/12/2019 Living Adjustments Due To Health Stopped Walking, Can't Move Information not available 09/12/2019 Major Loses No Information not available 09/12/2019 Latter-Day Somewhat Information not available 09/12/2019 Spirituality Somewhat Information not available 09/12/2019 Feel Safe Growing Up Yes Information not available 09/12/2019 Abusive Relationship In Past No Information not available 09/12/2019 Alcoholism Or Substance Abuse In Childhood Home No Information not available 09/12/2019 Alcoholism Or Substance Abuse In Current Home Or Relationship No Information not available 09/12/2019 Feel Safe In Current Home Yes Information not available 09/12/2019 Feel Safe, Respected, And Valued In Current Relationship Yes Information not available 09/12/2019 Violent Or Trauma Experiences Yes Information not available 09/12/2019 Safety Discussion In Private Yes Information not available 09/12/2019 Alcohol Intake Quantity 10 Drinks Per Week Information not available 09/12/2019 Alcohol Intake Variety Wine, Beer Information not available 09/12/2019 Do You Think You Have A Problem With Alcohol Yes Sometimes Information not available 09/12/2019 Does Anyone In Your Life Think You Have A Problem With Alcohol Yes Sometimes Information not available 09/12/2019 Recreational Drugs No Information not available 09/12/2019 Current Employment Status Working Full-time Information not available 09/12/2019 Stress Level (10 Most, 1 Least) 8 Information not available 09/12/2019 Unhealthy Stress Is Present Yes Sometimes Information not available 09/12/2019 Ways To Release Stress Alcohol, Watch Tv Information not available 09/12/2019 Sources Of Stress Are Job Information not available 09/12/2019 Exposures Cigarette Smoke, Welding, Heavy Metals, Chemicals, Heights And Depths Information not available 09/12/2019 How Many Children Do You Have? 5 Information not available 09/12/2019 Do You Have Any Siblings? 1 Sister And 1 Brother Information not available 09/12/2019 Do You Or Have You Ever Used Smokeless Tobacco? Never Used Smokeless Tobacco Information not available 09/20/2019 Are There Any Smokers In Your House? Yes Work Environment. Information not available 09/12/2019 How Much Tobacco Do You Smoke? No Information not available 09/12/2019 Sex: Unknown Functional Status None recorded. Mental Status None recorded. Family History Relationship Description Onset Age of this Age Resolved Age Notes LastModified by Organization Details LastModified Time Mother Arthritis Not availabl e 09/11/2019 15:52:53 Mother Hypertensive disorder Not available 2019 15:56:29 Mother Cerebrovascu lar accident Not available 15:57:11 Father Asthma Not available 0 09/11/2019 15:53:09 Father Heart disease Not available 2019 15:55:28 Father Hypertensive disorder Not available 2019 15:56:29 Maternal Grandmother Malignant neoplastic disease Not available 2019 15:53:56 Maternal Grandfather Diabetes mellitus Not available 2019 15:54:15 Brother Heart disease Not available 2019 15:55:28 Sister Hypercholest erolemia Not available 2019 15:56:02 Sister Hypertensive disorder Not available 2019 15:56:29 Sister Obesity Not available 09/11/2019 15:56:49 Medical History Condition Response Coronary Artery Disease N Gout Y Other N High Blood Pressure Y Kidney Stones N Hyperthyroidism N MRSA N INJURIES N Chronic Sinusitis N Gerd/Reflux N Congenital Heart Disease N Depression N Braces N Pneumonia N Complex Regional Pain Syndrome N BLOOD/INFLAMMATORY/IMMUNE Y Headache/Migraine N RESPIRATORY N Sinusitis N Gall stones N Bulimia N Obesity Y Arthritis Y Polycystic Ovarian Syndrome N Infertility N Congenital Disorder N Stroke N Crohn's Disease N Neck Injury Y HIV/AIDS N CARDIOVASCULAR N Skin Cancer N Mood disorder N Fibromyalgia N Irritable Bowel Syndrome N Kidney Disease N Concussion/Traumatic Brain Injury N Inflammatory bowel disease N Chronic Fatigue Syndrome N Anxiety N Hospitalizations Y Irregular HR/Arrhythmia N Heart Attack/MO N Herpes N GASTROINTESTINAL N Acne Y PTSD N Celiac Disease N Constipation N Bleeding Disorder N Hepatitis/Liver Disease N Broken bone Y Cerebral Palsy N Tuberculosis N METABOLIC/ENDOCRINE N Asthma Y Dental Visits 2x/year N Silver/Mercury Amalgum fillings Y Chronic Ear Infections N Bipolar disorder N Oral Steroids as Adult N MENTAL HEALTH N URINARY/REPRODUCTIVE N Anorexia N Hypothyroidism N Developmental delay N Pacemaker N Panic attacks N DERMATOLOGIC N Gastic or peptic ulcers N Food intolerance N Yeast infections N Prostate problem N Mononucleosis N Chronic pain N Hypoglycemia N Severe infections N ORAL HEALTH N Metabolic syndrome N Back Injury Y High Cholesterol N Antibiotic Use as Teen Y CANCER N Type 1 Diabetes N Autism/Autism Spectrum Disorder (ASD) N Autoimmune Disease N Allergies/Hayfever N Recurrent Fractures N Head Injury Y Osteoarthritis N NEUROLOGIC N Rheumatic fever N Parkinson's Disease N Oral Steroids as Teen N ADD/ADHD N Anemia N Multiple Sclerosis N Back Pain Y Type 2 Diabetes N Bronchitis/Emphysema N Dentures N Retainer N Cardiomyopathy N Seizures/Epilepsy N Heart Murmur N Congestive Heart Failure (CHF) N Valvular Heart Disease N Cancer and treatments N Eczema N MUSCULOSKELETAL/PAIN N Dementia N Urinary tract infections N Ulcerative colitis N Lupus N Learning Disorder/Difficulty N Connective Tissue Disorder N Blood Clotting Disorder N Antibiotic Use as Adult Y Psoriasis N Sleep Apnea Y Oral Steroids as /Child N Antibiotic Use in Infancy/Childhood Y Osteoporosis N Immunizations Vaccine Type Date Status Note Provider Nam e and Address Organization Details Recorded Time Tdap 02/28/2019 completed Gracie Champion [employer], [facility] 02/06/2020 09:07:01 COVID-19 vaccine, vector-nr, rS-Ad26, PF, 0.5 mL 10/11/2020 completed Gracie Champion [employer] [facility] 07/06/2021 08:23:45 COVID-19, mRNA, LNP-S, PF, 100 mcg/0.5mL dose or 50 mcg/0.25mL dose 06/09/2021 completed [facility]acie [employer], [facility] 07/06/2021 08:24:10 Past Encounters Encounter ID Performer Location Encounter Start Date Encounter Closed Date Diagnosis/Indication Diagnosis SNOMED-CT Code Diagnosis ICD10 Code Diagnosis Note [id number] [place] [address] 08/12/2019 14:29:59 08/12/2019 18:15:20 Adult health examination 820914948 Z00.00 -hx of polyps 2004 no fu-will need fu colonoscop y Obesity 790762565 E66.9 -bmi 47-eval with [facility] 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.9 - no erection in 1.5 yrs- discussed impact of meds Essential hypertension 26336328 I10 -discussed bp control-di scussed meds-heavy metals eval Neuropathy 767077132 G62 .9 - check labs-nutri tional therapy based on labs- need to reduce alcohol-if uric acid level elevated need to stop HCTZ Body mass index 40+ - severely obese 820064106 Z68.42 -discussed heavy metals eval- rec eval with nutritioni st- rec more plant based-?lucien ght management program - will monitor - 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 [address] [place] [address] 08/16/2019 08:49:59 08/16/2019 11:20:39 Adult health examination 036287700 Z00.00 -hx of polyps 2004 no fu-will need fu colonoscop y [id number] [facility] [address] [place] [address] 09/20/2019 07:51:55 09/20/2019 10:28:21 Essential hypertension 36464025 I10 -stop hctz and aldactone- add lasix-misael tor bp Male hypogonadism 468830 06 E29.1 low free testostero neelevated estrogenwi ll work on diet and wt lossadd aromatase inhibitor first Metabolic syndrome X 237 570928 E88.81 -low hdl/high tg/increas e insulin- discussed supplement s-discusse d diet and exercise-a dd cm core - berberine- eliminatio n dietno alcohol Vitamin D deficiency 347 59392 E55.9 -profound vit d def- start supplement -close fu - goal 60-80 Hyperuricemia 58476580 E 79.0 -stop HCTZ-flores e diet- will monitor - if not improved then add allopurino l Pain in bi lateral legs 9427457596 0609053 M79.604 cont support hosehope improve with nutrition and supplement s- goal to reduce /eliminate amlodipine -if cont then vascular studies [id number] [facility] [address] [place] [address] 10/21/2019 10:52:33 10/21/2019 13:52:55 Benign essential hypertension 5197855 I10 - will increase lasix to 2 per day-40mgco nt present medsmonito rlegs feeling better Metabolic syndrome X 237 300256 E88.81 -doing well on supplement s-reduced alcohol Obesity 982529169 E66.9 -bmi 47improvin gdiscussed ongoing diet and exercise Primary er ectile dysfunction 347591297 N52.9 -better with less alcohol and diet-exerc ise- on arimidex for elevated estrogens Vitamin D deficiency 347 17223 E55.9 -profound vit d def- on supplement -close fu - goal 60-[id number] [address] 12/18/2019 09:14:34 12/18/2019 12:24:14 Metabolic syndrome X 406122873 E88.81 -doing well on supplement s-reduced alcohol-ch marcelina fu labs- working on diet -?further treatment directed at leaky gut --no overt gi sx at this time Essential hypertension 75088114 I10 -stop hctz and aldactone- add lasix-misael tor bp Vitamin D deficiency 347 68817 E55.9 -profound vit d def- on supplement -close fu - goal 60-[id number] [address] 12/19/2019 11:04:10 12/19/2019 12:39:51 Metabolic syndrome X 617360797 E88.81 -doing well on supplement s-reduced alcohol-ch marcelina fu labs- working on diet -?further treatment directed at leaky gut --no overt gi sx at this time [id number] [address] 01/04/2020 09:37:32 01/06/2020 16:25:26 Carotid artery occlusion 075719641 I65.23 Family his tory of ischemic heart disease 139444027 Z82.49 Essential hypertension 61256832 I10 -stop hctz and aldactone- [place] [id number] [address] 02/06/2020 08:41:51 02/06/2020 12:02:37 Essential hypertension 90060673 I10 bp cont to run higher - sys 150-160wil l add -- nattokinas e -inc to 3 per day-vascul osirt- add 25 mg sprionolac tone-monit or labs-k-dis cussed cimt results - good flow vascular age 82 yo-monitor bp over next few weeksno alcohol in 35 days Male hypogonadism 647188 06 E29.1 low free testostero ne -imporved with anastrozol eelevated estrogen-i mproved with anastrozol ewill work on diet and wt loss [id number] [address] 03/10/2020 09:22:49 03/10/2020 11:33:39 Male hypogonadism 31138922 E29.1 low free testostero ne -improved with anastrozol eelevated estrogen-i mproved with anastrozol ewill work on diet and wt loss [id number] [address] 11/13/2020 08:15:21 11/13/2020 08:54:[id number] [address] 11/24/2020 08:15:29 11/24/2020 13:48:47 Essential hypertension 98531322 I10 bp much better - 120/70s rare alcohol wt inc about 10 lbs needs fu 1 yr cimt --- vascular age 2020 was 82 Male hypogonadism 801204 06 E29.1 low free testostero ne -improved with anastrozol eelevated estrogen-i mproved with anastrozol ewill work on diet and wt loss Pain in bi lateral legs 0083217667 1643438 M79.604 cont support hose better with diet changes and exercise still has ache discussed ? vascular studies - venous [id number] [address] [address] 07/06/2021 08:18:40 07/06/2021 08:48:22 Essential hypertension 75857542 I10 Adult heal th examination 897520777 Z00.00 -hx of polyps 2004 no fu-will need fu colonoscop y Screening for malignant neoplasm of prostate 180160479 Z12.5 Male hypogonadism 679675 06 E29.1 low free testostero ne -improved with anastrozol eelevated estrogen-i mproved with anastrozol ewill work on diet and wt loss Vitamin D deficiency 347 10146 E55.9 -profound vit d def- on supplement -close fu - goal 60-80 Metabolic syndrome X 237 254693 E88.81 -doing well on supplement s-reduced alcohol-ch marcelina fu labs- working on diet -?further treatment directed at leaky gut --no overt gi sx at this time [id number] Emani Yin [address] [address] 09/24/2021 09:23:33 09/27/2021 10:47:49 Essential hypertension 82106069 I10 [id number] [address] 12/10/2021 14:30:16 12/10/2021 16:37:14 Metabolic syndrome X 116241386 E88.81 -doing well on supplement s-reduced alcohol-ch marcelina fu labs- working on diet -?further treatment directed at leaky gut --no overt gi sx at this time Male hypogonadism 768461 06 E29.1 low free testostero ne -improved with anastrozol eelevated estrogen-i mproved with anastrozol ewill work on diet and wt loss Essential hypertension 27224642 I10 [id number]ni [address] [address] 02/04/2022 10:14:42 02/07/2022 11:14:[id number] [address] 04/01/2022 09:43:39 04/01/2022 10:59:44 Essential hypertension 00296557 I10 stable Metabolic syndrome X 237 427120 E88.81 Obstructiv e sleep apnea syndrome 77074252 G47.33 - wears cpap regularly- travels- does help with how he feels [id number] [address] 06/09/2022 10:26:01 07/06/2022 13:27:55 [id number] Bárbara Freeman NP [address] [address] 12/09/2022 14:41:20 12/12/2022 12:03:37 Hypercholesterolemia 50251069 E78.00 Adult [facility] th examination 038410875 Z00.00 Prediabetes 272617317 R7 3.03 Metabolic syndrome X 237 373170 E88.81 Essential hypertension 85504891 I10 Male hypogonadism 552689 06 E29.1 [id number] [place] [address] 02/03/2023 09:35:43 02/06/2023 14:49:06 Essential hypertension 54783385 I10 stable Metabolic syndrome X 237 354749 E88.81 Male hypogonadism 143751 06 E29.1 low free testostero ne -improved with anastrozol eelevated estrogen-i mproved with anastrozol ewill work on diet and wt loss Hypercholesterolemia 136 70674 E78.00 Vitamin D deficiency 347 62165 E55.9 -profound vit d def- on supplement -close fu - goal 60-[id number] [address] 05/10/2023 09:21:08 05/11/2023 11:01:41 Essential hypertension 43928685 I10 stable Metabolic syndrome X 237 297338 E88.819 Hyperuricemia 53057626 E 79.0 -stop HCTZ-flores e diet- will monitor - if not improved then add allopurino l Alcohol in take above recommended sensible limits 074097773 F10.10 Health Concerns Section Related Observation LastModified by Organization Detai ls LastModified Time None Recorded Concern Status LastModified by Organization Details LastModified Time None Recorded Advance Directives Directive None Recorded Payers Encounter Date Sequence Insurance Name Policy Number Policy Small Covered Member ID Small Member ID Guarantor Name 04/01/2022 1 [place] [id number] Felipe L Rice [id number] Felipe Rice 04/01/2022 1 [place] [id number] Felipe Rice [id number] Felipe Rice 06/08/2022 1 [place] [id number] Felipe L Rice [id number] Felipe Rice 06/08/2022 1 [place] [id number] Felipe Rice [id number] Felipe Rice 12/09/2022 1 [place] [id number] Felipe L Rice [id number] Felipe Rice 12/09/2022 1 [place] [id number] Felipe Mera [id number] Felipe Mera 02/03/2023 1 *SELF PAY* Natalie Bhatia Notes Date Note Type Note Provider Name and Address Organization Details Recorded Time 2 text/html 67 yo wmhtnmetabolic syndromesleep apneaobesity working and traveling - 14-16 hour day - high stresswt up 274- 305 more fatigue legs hurting all of the above improved/cleared with wt loss in past discussed high risk status Bello mohr [facility] 04/01/2022 10:59:43 2 text/html DID NOT SHOW FOR VISIT --VM REACH OUT Bello m[facility] 06/09/2022 16:27:12 3 text/html Felipe is a 67 y/o M whom presents for med refill1. HypertensionOn furosemide, currently out of his medication.2. Metabolic syndromeOn 500mg metformin doing well. Bárbara Freeman, BREE [address] , [place], [address], [facility] 12/09/2022 15:26:56 3 text/html overall feeling okhas retired last 3-4 weeksworking on geting back to healthy lifestyleworking on less alcohol elevated cholmetabolic syndromehtn wt upleg pain increased with wt gain Bello mohr [facility] 02/03/2023 10:09:54 3 text/html htnmetabolic syndrome with insulin resistancehyperuricemia without goutobesityalcohol intake -above rec levels - no major issues but has some concernslow testosterone - prior rx did not have noticeable clinical benefitestrogens okhs crp elevated discussed diet - exercise - reduce alcohol intake Bello mohr [facility] 05/10/2023 10:30:12
--- NOTE | 2024-09-10 11:37 | P.SLEEP_ITS ---
Sleep Study Date of Study: 08/13/24 Ordering Provider: Ryan Tapia, ARCHITECTURAL SUPERINTENDENT Interpreting Physician: Ni Carrizales, Sleep Study Type: CPAP Titration Height: 1.75 m Weight: 132.903 kg Body Mass Index: 43.2 Neck Circumference (inches): 19 [place]: 7 Reason for Sleep Study Current CPAP machine is nearing end of motor life. Sleep History The patient is a 69-year-old male who had a sleep study ordered to requalify for a new CPAP machine. The patient denies awakening from sleep short of breath. He denies awakening at night with heartburn, belching, or cough. He frequently snores, and it is loud enough that others complain. He occasionally has trouble sleeping when he has a cold. He denies waking up gasping for air throughout the night. He occasionally has breathing problems at night, observed by himself or others. He rarely sweats excessively at night. He denies having heart palpitations or irregular heartbeats during the night. He occasionally falls asleep during the day, but never while driving. He denies sleep paralysis, cataplexy, and hypnagogic or hypnopompic hallucinations. He denies feeling afraid of going to sleep. He rarely has nightmares. He rarely remembers his dreams. He occasionally has thoughts racing through his mind. He denies feeling sad or depressed. He rarely has anxiety. He denies having muscular tension. He denies noticing parts of his body jerk. He denies kicking during the night. He rarely experiences crawling and aching feelings in his legs, and rarely has leg pain during the night. He denies grinding his teeth during sleep and denies awakening with morning jaw pain. He is rarely bothered by pain during the day, but never awakened by pain during the night. He rarely wakes up feeling stiff in the morning. He rarely wakes up with sore or aching muscles. He denies waking up with pain in the neck, spine, and other joints. He goes to bed at 9:30 p.m. on weekdays and between 10 to 10:30 p.m. on the weekends. He is able to fall asleep immediately. He wakes up 1 to 2 times throughout the night for unknown reasons and is able to fall back to sleep immediately. He wakes up at 5:15 a.m. on weekdays and at 7 a.m. on the weekends. He typically gets 8 hours of sleep per night. He does not stay in bed after waking up in the morning. He currently lives with his . He denies consuming any caffeinated beverages within 2 hours of bedtime. He denies engaging in physical exercise before bedtime. He will agree to watch television before falling asleep. He denies taking naps in the afternoon or the evening. He consumes 2 cups of coffee per day. He denies tobacco, alcohol, and recreational drug use. Sleep Procedure A full night CPAP Titration using the [employer] multi-channel system recorded the standard physiologic parameters including EEG, EOG, submentalis EMG, anterior tibialis EMG, EKG, body position, nasal and oral airflow using nasal pressure sensor and thermistor.? Respiratory parameters of chest and abdominal movements were recorded with Respiratory Inductance Plethysmography belts. Oxygen saturation was recorded by pulse oximetry. Video monitoring was also performed. Sleep stages, periodic limb movements, and EEG arousals were scored in 30 second epochs according to the criteria of the AASM Scoring Manual. The Apnea-Hypopnea Index was calculated using CMS guidelines for definition of hypopnea with 4% O2 desaturations while scoring respiratory events. Sleep Architecture The total recording time was 497.5 minutes.? The total sleep time was 414.5 minutes. Sleep latency was 15.9 minutes. REM latency was 135.5 minutes. Sleep efficiency was 83.3%. The patient had 40 awakenings for an awakening index of 5.8. Wake after Sleep Onset time was 67.0 minutes. The patient spent 76.5 minutes, 18.5% of total sleep time in Stage N1. The patient spent 202.5 minutes, 48.9% in Stage N2. The patient spent 25.5 minutes, 6.2% in Stage N3. The patient spent 110.0 minutes, 26.5% in Stage REM. Respiratory Analysis The patient had 5 hypopneas for an overall Apnea Hypopnea Index of 0.7 events per hour. The REM Apnea Hypopnea Index was 2.2. The NREM Apnea Hypopnea Index was 0.2. The patient had a Central Apnea Hypopnea Index of 0. There was no evidence of Bradley-Foote Respirations. The patient was started on CPAP 5 cm H2O and titrated to CPAP 11 cm H2O due to hypopneas. The patient was able to fall asleep starting on CPAP 5 cm H2O. The patient was able to achieve REM sleep starting on CPAP 7 cm H2O. The patient was able to achieve a residual AHI less than 5 with both NREM and REM sleep in the supine position on the final three pressure settings. On CPAP 9 cm H2O, the patient spent 68.5 minutes in NREM and 53.5 minutes in REM with 1 hypopnea, resulting in an AHI of 0.5. The patient had a sleep efficiency of 98% on this pressure setting. Arousals There were 133 total arousals for an arousal index of 19.3. There were 58 spontaneous arousals for an index of 8.4. ?There were 3 arousals due to respiratory events for an index of 0.4. There were 59 arousals due to periodic limb movements for an index of 8.5.? There were 14 arousals due to isolated limb movements for an index of 2.0. Periodic Limb Movements The patient had 34 isolated limb movements with an index of 4.9. The patient had 537 periodic limb movements with index of 77.7, which is elevated (normal < 15). Patient had a total of 571 limb movements with a total limb movement index of 82.7. Oximetry Data The patient had an average oxygen saturation of 92.8% in sleep with a minimum oxygen saturation of 89.0% and a maximum oxygen saturation of 97.0%. The patient had 10 oxygen desaturations that were 4% or greater resulting in an Oxygen Desaturation Index of 1.4.? The patient spent 0 minutes of total sleep time with an oxygen saturation below 88%. Snoring Profile Snoring was not present during this study. Cardiac Profile The EKG showed normal sinus rhythm with occasional PVCs. The patient had an average pulse rate of 48.7 bpm with a minimum pulse rate of 43.0 bpm and a maximum pulse rate of 73.0 bpm. ? EEG Profile No signs of seizure activity seen. Assessment and Plan Assessment and Plan (1) DEANNA (obstructive sleep apnea): Code(s): G47.33 - Obstructive sleep apnea (adult) (pediatric) Status: Acute Assessment and Plan: The patient was started on CPAP 5 cm H2O and titrated to CPAP 11 cm H2O due to hypopneas. We were able to find a pressure setting that resolved the patient's sleep apnea with a high sleep efficiency. I recommend that the patient be prescribed CPAP 10 cm H2O, size medium Resmed AirFit F20 full face mask, CPAP filters/tubing and heated humidity. This should be used with all episodes of sleep.? Compliance should be reviewed within 31-90 days of starting therapy for usage greater than 4 hours per night greater than 70% of the nights. The patient should be asked about symptoms such as?excessive daytime sleepiness, quality of sleep, decreased nocturia, increased?mental functioning such as memory, mood, and concentration. The patient had a significant number of limb movements during the study with the majority being periodic in nature. Slightly greater than 10% of the periodic limb movements caused arousals in the patient's sleep. The patient's sleep history does not suggest Restless Leg Syndrome. I recommend that the patient have a serum ferritin drawn for evaluation of iron deficiency anemia. If the patient has a serum ferritin less than 75 ng/mL, I recommend starting a daily iron supplement and a Vitamin C supplement for better absorption. If the serum ferritin is greater than 75 ng/mL, I recommend starting a dopamine agonist and titrating the dose until symptoms resolve. There are nonpharmacological methods to treat limb movements including daily exercise, stretching calf muscles before bed, avoiding excessive amounts of caffeine and alcohol, vitamin B supplementat ion, magnesium lotion massaged into legs before bed, and use of a weighted blanket. Data The data obtained during this sleep study is adequate for interpretation. Certification This sleep study has been reviewed by a board certified sleep medicine physician.
[2024-09-10 11:38] VITALS: BMI 43.2
== END 2024-08-14 06:48 | disposition home or self-care (01) ==
LOC: ANHCSM 10:15
PROVIDERS: PCP Internal Medicine; Visit Provider Nurse Practitioner Family
DX: G47.30 Sleep apnea, unspecified (principal); G47.33 Obstructive sleep apnea (adult) (pediatric)
CPT/HCPCS: 95811